=== PATIENT | male | born 1980 | race Caucasian/White ===

== ENCOUNTER → 2024-01-16 10:20 | Outpatient (REF) | payer BC, SELFPAY | LOC: RAD 10:20 | PROVIDERS: ATTENDING PHYSICIAN Internal Medicine Hematology & Oncology; FAMILY PHYSICIAN Family Medicine | DX: C62.10 Malignant neoplasm of unspecified descended testis (principal) | CPT/HCPCS: 71260; 74177; Q9967 ==

== ENCOUNTER → 2024-08-01 07:42 | Outpatient (REF) | payer BC, SELFPAY | LOC: MRI 3T 07:42 | PROVIDERS: ATTENDING PHYSICIAN Internal Medicine Hematology & Oncology; FAMILY PHYSICIAN Family Medicine | DX: C62.10 Malignant neoplasm of unspecified descended testis (principal) | CPT/HCPCS: 71046; 74183 ==

== ENCOUNTER → 2024-08-05 07:48 | Outpatient (REF) | payer BC, SELFPAY | LOC: MRI 07:48 | PROVIDERS: ATTENDING PHYSICIAN Internal Medicine Hematology & Oncology; FAMILY PHYSICIAN Family Medicine | DX: C62.10 Malignant neoplasm of unspecified descended testis (principal) | CPT/HCPCS: 72197; A9575 ==

== ENCOUNTER → 2025-01-22 19:45 | Outpatient (REF) | payer BC, SELFPAY | LOC: MRI 3T 19:45 | PROVIDERS: ATTENDING PHYSICIAN Internal Medicine Hematology & Oncology; FAMILY PHYSICIAN Family Medicine | DX: C61 Malignant neoplasm of prostate (principal) | CPT/HCPCS: 72197; A9575 ==

== ENCOUNTER → 2025-01-31 18:26 | Outpatient (REF) | payer BC, SELFPAY | LOC: MRI 3T 18:26 | PROVIDERS: ATTENDING PHYSICIAN Internal Medicine Hematology & Oncology; FAMILY PHYSICIAN Family Medicine | DX: C62.10 Malignant neoplasm of unspecified descended testis (principal) | CPT/HCPCS: 74183; A9575 ==

== ENCOUNTER → 2025-02-04 10:02 | Outpatient (REF) | payer BC, SELFPAY | LOC: HWRAD 10:02 | PROVIDERS: ATTENDING PHYSICIAN Internal Medicine Hematology & Oncology; FAMILY PHYSICIAN Family Medicine | DX: C62.10 Malignant neoplasm of unspecified descended testis (principal) | CPT/HCPCS: 71046 ==

== ENCOUNTER → 2025-08-28 20:10 | Outpatient (REF) | payer BC, SELFPAY | LOC: MRI 20:10 | PROVIDERS: ATTENDING PHYSICIAN Internal Medicine Hematology & Oncology; FAMILY PHYSICIAN Family Medicine | DX: C62.10 Malignant neoplasm of unspecified descended testis (principal) | CPT/HCPCS: 74183; A9575 ==

== ENCOUNTER → 2025-09-02 10:12 | Outpatient (REF) | payer BC, SELFPAY | LOC: HWRAD 10:12 | PROVIDERS: ATTENDING PHYSICIAN Internal Medicine Hematology & Oncology; FAMILY PHYSICIAN Family Medicine | DX: C62.10 Malignant neoplasm of unspecified descended testis (principal) | CPT/HCPCS: 71048 ==